=== PATIENT | male | born 1985 | race Caucasian/White ===

== ENCOUNTER 2016-08-06 18:19 | Emergency (ER) | payer OTHER ==
[~2016-08-06] VITALS: Ht 175.3 cm; Wt 100.0 kg
[~2016-08-06 18:19] MED LIST: BREX1TAB3 PO; HYDR-3533 PO; IBUP-238 PO; WELL150T PO
[2016-08-06 18:22] VITALS: BP 121/72; PULSE 95; RESP 20; TEMP 98.2; O2SAT 97
--- NOTE | 2016-08-06 18:32 | PD ---
Physical Exam Time Seen by Provider: 18:30 Narrative 31 YEAR OLD MALE PRESENTS TO THE ED FOR EVALUATION OF LEFT SIDED CHEST PAIN FOR 3 DAYS WITH ASSOCIATED SOB. DOES NOT RADIATE. NO N/V. NO DIAPHORESIS. NO FEVER OR CHILLS. 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 NOT CURRENTLY ON MEDICATIONS. NO RECENT TRAVEL. NO OTHER SYMPTOMS Data Data Last Documented VS Vital Signs Date Time Temp Pulse Resp B/P Pulse Ox O2 Delivery O2 Flow Rate FiO2 08/06/16 18:22 98.2 95 20 121/72 97 Room Air Orders Electrocardiogram (08/06/16 18:32) Basic Metabolic Panel (Bmp) (08/06/16 18:32) Ckmb (Isoenzyme) Profile (08/06/16 18:32) Complete Blood Count With Diff (08/06/16 18:32) Magnesium (Mg) (08/06/16 18:32) Prothrombin Time / Inr (Pt) (08/06/16 18:32) Act Partial Throm Time (Ptt) (08/06/16 18:32) Troponin I (08/06/16 18:32) Chest, Single Ap (08/06/16 18:32) Lipase (08/06/16 18:34) CKMB (08/06/16 19:05) CKMB% (08/06/16 19:05) Labs Laboratory Tests Test 08/06/16 19:05 White Blood Count 8.1 TH/MM3 Red Blood Count 4.84 MIL/MM3 Hemoglobin 14.2 GM/DL Hematocrit 41.3 % Mean Corpuscular Volume 85.5 FL Mean Corpuscular Hemoglobin 29.4 PG Mean Corpuscular Hemoglobin 34.4 % Concent Red Cell Distribution Width 13.3 % Platelet Count 185 TH/MM3 Mean Platelet Volume 9.7 FL Neutrophils (%) (Auto) 67.6 % Lymphocytes (%) (Auto) 21.2 % Monocytes (%) (Auto) 8.8 % Eosinophils (%) (Auto) 1.8 % Basophils (%) (Auto) 0.6 % Neutrophils # (Auto) 5.5 TH/MM3 Lymphocytes # (Auto) 1.7 TH/MM3 Monocytes # (Auto) 0.7 TH/MM3 Eosinophils # (Auto) 0.1 TH/MM3 Basophils # (Auto) 0.0 TH/MM3 CBC Comment DIFF FINAL Differential Comment Prothrombin Time 10.6 SEC Prothromb Time International 1.0 RATIO Ratio Activated Partial 27.0 SEC Thromboplast Time Sodium Level 140 MEQ/L Potassium Level 3.6 MEQ/L Chloride Level 105 MEQ/L Carbon Dioxide Level 27.8 MEQ/L Anion Gap 7 MEQ/L Blood Urea Nitrogen 13 MG/DL Creatinine 0.94 MG/DL Estimat Glomerular Filtration 92 ML/MIN Rate Random Glucose 97 MG/DL Calcium Level 8.4 MG/DL Magnesium Level 2.1 MG/DL Total Creatine Kinase 105 U/L Creatine Kinase MB 0.6 NG/ML Troponin I LESS THAN 0.02 NG/ML Lipase 82 U/L [facility] Medical Record Reviewed: Yes Supervised Visit with KIRSTIE: No Narrative Course WORK UP INITIATED IN TRIAGE. Condition: Stable Martine Britton Aug 06, 2016 18:32
[2016-08-06 19:35] LABS: AUTOMATED NEUTROPHIL # 5.5 TH/MM3 (1.8-7.7); BASOPHIL % 0.6 % (0.0-2.0); EOSINOPHIL # 0.1 TH/MM3 (0-0.4); EOSINOPHIL % 1.8 % (0.0-4.0); HEMATOCRIT 41.3 % (39.0-51.0); HEMO FLAGS DIFF FINAL; LYMPH % 21.2 % (9.0-44.0); LYMPHOCYTE # 1.7 TH/MM3 (1.0-4.8); MEAN CELL VOLUME 85.5 FL (80.0-100.0); MEAN CORPUSCULAR HEMOGLOBIN 29.4 PG (27.0-34.0); MEAN CORPUSCULAR HGB CONC 34.4 % (32.0-36.0); MONO % 8.8 % (0.0-8.0); NEUT % 67.6 % (16.0-70.0); PLATELET COUNT 185 TH/MM3 (150-450); RED BLOOD COUNT 4.84 MIL/MM3 (4.50-5.90); RED CELL DISTRIBUTION WIDTH 13.3 % (11.6-17.2); WHITE BLOOD COUNT 8.1 TH/MM3 (4.0-11.0)
--- NOTE | 2016-08-06 19:38 | RADRPT ---
EXAM DATE/TIME: 08/06/2016 19:15 [place] COMPARISON: No previous studies available for comparison. INDICATIONS : Chest pain for several days. MEDICAL HISTORY : None. SURGICAL HISTORY : None. ENCOUNTER: Initial ACUITY: 3 days PAIN SCORE: 4/10 LOCATION: Bilateral chest FINDINGS: A single view of the chest demonstrates the lungs to be symmetrically aerated without evidence of mas s, infiltrate or effusion. The cardiomediastinal contours are unremarkable. Osseous structures are intact. CONCLUSION: No acute disease. Fabrice Diaz MD on August 06, 2016 at 19:37 Board Certified Radiologist. This report was verified electronically.
[2016-08-06 19:51] LABS: ANION GAP 7 MEQ/L (5-15); BICARBONATE 27.8 MEQ/L (21.0-32.0); BLOOD UREA NITROGEN 13 MG/DL (7-18); CHLORIDE 105 MEQ/L (98-107); GLOMERULAR FILTRATION RATE 92 ML/MIN (>89); MAGNESIUM 2.1 MG/DL (1.5-2.5); POTASSIUM 3.6 MEQ/L (3.5-5.1); SODIUM (NA) 140 MEQ/L (136-145)
[2016-08-06 19:55] LABS: CREATINE KINASE 105 U/L (39-308)
[2016-08-06 19:57] LABS: PROTHROMBIN TIME - PATIENT 10.6 SEC (9.8-11.6)
[2016-08-06 20:07] LABS: CKMB 0.6 NG/ML (0.5-3.6)
--- NOTE | 2016-08-07 21:08 | EKG ---
Date Performed: 08/06/2016 Time Performed: 19:00:19 PTAGE: 31 years EKG: Sinus rhythm NORMAL ECG PREVIOUS TRACING : 05/17/2010 20.28 DOCTOR: Ke Gonzalez Interpretating Date/Time 08/07/2016 21:03:53
[2016-08-27] MEDS ORDERED: IBUP800T23 PO (14:22)
[2016-08-27] MEDS ORDERED: VIAG50TA PO (15:24)
[2016-09-10] MEDS ORDERED: CIAL10TA PO (11:03)
== END 2016-08-06 21:35 | disposition left against medical advice (07) ==
LOC: NED 18:19
DX: R07.9 Chest pain, unspecified (principal); Z53.21 Procedure and treatment not carried out due to patient leaving prior to being seen by health care provider
CPT/HCPCS: 71010; 80048; 82550; 82552; 83690; 83735; 84484; 85025; 85610; 85730; 93005; 99281